=== PATIENT | female | born 1990 | race Caucasian/White ===

== ENCOUNTER 2017-04-16 12:10 | Inpatient (IN) | payer MEDICAID ==
[~2017-04-16] VITALS: Ht 165.1 cm; Wt 88.8 kg
[2017-04-16 12:30] VITALS: Ht 165.1 cm; Wt 88.8 kg
[2017-04-16 12:31] VITALS: BP 121/59; PULSE 75; RESP 18
[2017-04-16] MEDS ORDERED: OXYTOCIN 30 UNITS/LR 500 ML IV SCH ×3 (14:00→22:00)
[2017-04-16] MEDS ORDERED: MISOPROSTOL 200 MCG TAB PR PRN (14:00)
[2017-04-16] MEDS ORDERED: LACTATED RINGER'S 1,000 ML IV PRN (14:00)
[2017-04-16] MEDS ORDERED: CARBOPROST 250 MCG INJ IM PRN (14:00)
[2017-04-16] MEDS ORDERED: BUTORPHANOL 2 MG INJ IV PRN (14:00)
[2017-04-16] MEDS ORDERED: IBUPROFEN 600 MG TAB PO PRN (14:00)
[2017-04-16] MEDS ORDERED: METHYLERGONOVINE 0.2 MG INJ IM PRN (14:00)
[2017-04-16] MEDS ORDERED: OXYTOCIN 30 UNITS/LR 500 ML IV PRN (14:00)
[2017-04-16] MEDS ORDERED: LIDOCAINE 1% (MPF) 30 ML INJ INJ PRN (14:00)
[2017-04-16] MEDS: LACTATED RINGER'S 1,000 ML IV SCH ×2 (14:33→20:26)
[2017-04-16 14:51] LABS: ADD SCAN DIFF NO
[2017-04-16 14:56] LABS: BASOPHIL # 0.1 10^3/ul (0.0-0.1); BASOPHILS % 0.4 % (0.0-2.0); EOSINOPHILS # 0.1 10^3/ul (0.0-0.5); EOSINOPHILS % 0.4 % (0.0-7.0); HEMATOCRIT 34.2 % (37.0-47.0); HEMOGLOBIN 11.5 g/dl (12.0-16.0); LYMPHOCYTES # 1.6 10^3/ul (0.8-2.9); MEAN CORPUSCULAR HEMOGLOBIN 28.6 pg (29.0-33.0); MEAN CORPUSCULAR HGB CONC 33.6 g/dl (32.0-37.0); MEAN CORPUSCULAR VOLUME 85.1 fl (82.0-101.0); MEAN PLATELET VOLUME 10.2 fl (7.4-10.4); MONOCYTE # 0.7 10^3/ul (0.3-0.9); MONOCYTES % 5.7 % (0.0-11.0); NEUTROPHIL # 9.1 10^3/ul (1.6-7.5); NEUTROPHILS % 78.2 % (39.0-77.0); PLATELET COUNT 271 10^3/UL (140-415); RED BLOOD COUNT 4.02 10^6/ul (4.20-5.40); WHITE BLOOD COUNT 11.6 10^3/ul (4.8-10.8)
[2017-04-16 15:11] LABS: INR 1.09; PROTIME 14.1 Sec (12.2-14.2); PT RATIO 1.1
[2017-04-16 15:12] LABS: PARTIAL THROMBOPLASTIN TIME 29.4 Sec (25.0-35.0)
[2017-04-17] MEDS ORDERED: LACTATED RINGER'S 1,000 ML IV ONE (03:42)
[2017-04-17] MEDS ORDERED: PROCHLORPERAZINE 10 MG INJ IV PRN (04:00)
[2017-04-17] MEDS ORDERED: ONDANSETRON 4 MG INJ IV ONE (04:00)
[2017-04-17] MEDS ORDERED: morphine 2 MG INJ IV PRN ×2 (04:00)
[2017-04-17] MEDS ORDERED: KETOROLAC 30 MG INJ IV PRN (04:00)
[2017-04-17] MEDS ORDERED: ONDANSETRON 4 MG INJ IV PRN ×2 (04:00→16:00)
[2017-04-17] MEDS ORDERED: NALOXONE (0.4 MG/ML) INJ IV PRN (04:00)
[2017-04-17] MEDS ORDERED: DIPHENHYDRAMINE 50 MG INJ IV PRN (04:00)
[2017-04-17] MEDS ORDERED: CITRIC ACID/SODIUM CITRATE 15 ML CUP PO ONE (04:00)
[2017-04-17] MEDS ORDERED: FENTAnyl 2MCG/ML-ROPIV 0.2% 100 ML BAG EPI SCH (04:00)
[2017-04-17] MEDS: LACTATED RINGER'S 1,000 ML IV SCH ×2 (04:13→09:13)
--- NOTE | 2017-04-17 08:42 | PN ---
Date/Time of Note Date/Time of Note DATE: 04/17/17 TIME: 08:39 OB Subjective Subjective Subjective Patient is 4 para 1 at 39+5 weeks of gestation in active labor Status post epidural anesthesia OB Objective HEENT: WNL Heart: Rhythm Normal Lungs: Clear, Equal Abdomen: WNL Extremities: Normal Reflexes: Normal Cervical Dilatation: 3cm Effacement: 50% Station: -1 Heart Rate: 140's Accelerations: Accelerations Present Decelerations: No Decelerations Varibility: Moderate Contractions on Admission: < 5 Minutes Apart Intensity: Moderate OB Assessment/Plan Reason for admission: active labor Other plan: Artificial rupture membranes-minimal clear fluid obtained Continue with oxytocin augmentation Anticipate normal spontaneous vaginal delivery PAULA MORENO MD Apr 17, 2017 08:42
--- NOTE | 2017-04-17 14:18 | HP ---
Date/Time of Note Date/Time of Note DATE: 04/17/17 TIME: 14:13 OB - History Hx of Present Free Text/Dictation This is a 26 years old female 4 para [id number] EDC April 19, 2017 admitted to [facility] labor and delivery unit at 39 weeks and 5 days in labor pelvic examination on admission cervical dilatation 3 cm 70 % effacement vertex at -2 station patient admitted to L&D , due to far apart contraction she is required labor augmentation with Pitocin IV drip, heart tracing category 1. Chief Complaint: 39 weeks 5 days in early labor Estimated Due Date: Apr 19, 2017 : 4 Para: 1 Spontaneous : 2 Care: Good Care Ultrasounds: Normal mid trimester US Obstetrical Complications: None Medical Complications: None Past Family/Social History * Past Medical, Surgical, Family and Obstetric Histories reviewed from chart. Rubella: immune RPR/VDRL: Negative GBS Status: Negative HBsAG: Negative OB Admission Exam Vital Signs Vital Signs Vital Signs Date Time Temp Pulse Resp B/P Pulse Ox O2 Delivery O2 Flow Rate FiO2 04/16/17 12:31 98.5 75 18 121/59 Room Air Physical Exam HEENT: WNL Heart: Rhythm Normal Lungs: Clear, Equal Extremities: Normal Reflexes: Normal Cervical Dilatation: 3cm Effacement: 75% Station: -2 Membranes: Intact Heart Rate: 130's Accelerations: Accelerations Present Decelerations: No Decelerations Varibility: Moderate Contractions on Admission: 6-10 Minutes Apart Intensity: Mild Last 72 hours Lab Results CBC & BMP 04/16/17 14:20 MARSHA SUH MD Apr 17, 2017 14:18
--- NOTE | 2017-04-17 14:23 | PN ---
Triage Information Date/Time Apr 16, 2017 at 13:47 Weeks of Gestation 39 weeks 5 days : 4 Para: 1 Diabetes: none Hypertention: none Objective Vital Signs Date Time Temp Pulse Resp B/P Pulse Ox O2 Delivery O2 Flow Rate FiO2 04/16/17 12:31 98.5 75 18 121/59 Room Air Intake and Output 04/16/17 04/16/17 04/17/17 15:00 23:00 07:00 Intake Total 250 ml 625 ml 1260 ml Output Total 1400 ml 500 ml Balance 250 ml -775 ml 760 ml Results/Medications Result Diagram: 04/16/17 1420 Medications Current Medications Lactated Ringer's (Lr) 1,000 ml @ 125 mls/hr Q8H IV Last administered on 09:13; Admin Dose 125 MLS/HR; Start 04/16/17 at 13:44 Butorphanol Tartrate (Stadol) 2 mg Q2H PRN IV PAIN; Start 04/16/17 at 14:00 Lidocaine 30 ml 30 ml ONCE PRN INJ EPISIOTOMY/TEARING; Start 04/16/17 at 14:00 Oxytocin/Lactated Ringer's 500 ml @ 125 mls/hr ONCE IV ; Start 04/16/17 at 14:00 Ibuprofen 600 mg 600 mg ONCE PRN PO Mild Pain (Pain Score 1-3); Start 04/16/17 at 14:00 Lactated Ringer's 1,000 ml @ 2,000 mls/hr Q30M PRN IV PRE-EPIDURAL BOLUS; Start 04/16/17 at 14:00 Oxytocin/Lactated Ringer's 500 ml @ 0 mls/hr ONCE PRN IV For Hemorrhage Management; Start 04/16/17 at 14:00 Methylergonovine Maleate (Methergine) 0.2 mg ONCE PRN IM VAGINAL BLEEDING; Start 04/16/17 at 14:00 Carboprost Tromethamine (Hemabate) 250 mcg ONCE PRN IM VAGINAL BLEEDING; Start 04/16/17 at 14:00 Misoprostol 1000 mcg 1,000 mcg ONCE PRN LA VAGINAL BLEEDING; Start 04/16/17 at 14 :00 Oxytocin/Lactated Ringer's 500 ml @ 0 mls/hr Q0M IV Last administered on 23:51; Admin Dose 1 MLS/HR; Start 04/16/17 at 22:00 Naloxone HCl (Narcan) 0.1 mg Q2M PRN IV FOR RESP RATE 8 OR LESS; Start at 04:00; Stop 04/18/17 at 03:59 Ketorolac Tromethamine (Toradol) 30 mg Q6H PRN IV PAIN; Start 04/17/17 at 04:00 ; Stop 04/18/17 at 03:59 Morphine Sulfate (morphine) 2 mg Q3H PRN IV PAIN LEVEL 1-5; Start 04/17/17 at 04:00; Stop 04/18/17 at 03:59 Morphine Sulfate (morphine) 4 mg Q3H PRN IV PAIN LEVEL 6-10; Start 04/17/17 at 04:00; Stop 04/18/17 at 03:59 Diphenhydramine HCl (Benadryl) 25 mg Q6H PRN IV ITCHING; Start 04/17/17 at 04: 00; Stop 04/18/17 at 03:59 Ondansetron HCl (Zofran Inj) 4 mg Q6H PRN IV NAUSEA AND/OR VOMITING; Start 08/24 at 04:00; Stop 04/18/17 at 03:59 Prochlorperazine (Compazine Inj) 10 mg ONCE PRN IV NAUSEA AND/OR VOMITING; Start 04/17/17 at 04:00; Stop 04/18/17 at 03:59 MARSHA SUH MD Apr 17, 2017 14:23
--- NOTE | 2017-04-17 14:26 | LDN ---
Date/Time of Note Date/Time of Note DATE: 04/17/17 TIME: 14:23 Delivery Summary Normal spontaneous vaginal delivery of a baby from OA position shoulders delivered without any difficulty rest of the baby's body followed placenta spontaneous expulsion inspected complete patient sustained small first-degree perineal laceration repaired with 3-0 chromic catgut estimated blood loss 250 cc Weeks of Gestation 39 weeks 5 days Placenta Delivered: Spontaneously Meconium: none Episiotomy: No Laceration repair: First-degree perineal laceration repaired with 3-0 chromic catgut Anesthesia type: Epidural Estimated blood loss: 250 Sponge & Needle done & correct: Yes All needle counts correct: Yes Any foreign bodies felt in the: No Problems: Delivery Information Sex Sex: male Apgars 1 Minute: 9 5 Minute: 9 Suctioning Nose & mouth suctioned at merly: Yes Delee suction performed: No Umbilical Cord Umbilical cord with: 3 Vessels Cord presentations: nuchal cord Cord Blood was obtained: Yes MARSHA SUH MD Apr 17, 2017 14:26
[2017-04-17 15:40] VITALS: BP 97/44; PULSE 62; RESP 18
[2017-04-17] MEDS ORDERED: ACETAMINOPHEN/CODEINE #3 TAB PO PRN ×2 (16:00)
[2017-04-17] MEDS ORDERED: OXYCODONE/ASPIRIN (4.88/325) TAB PO PRN ×2 (16:00)
[2017-04-17] MEDS ORDERED: DIBUCAINE 1% 30 GM OINT PR PRN (16:00)
[2017-04-17] MEDS ORDERED: BENZOCAINE 20% 56 ML SPRAY TOP PRN (16:00)
[2017-04-17] MEDS ORDERED: WITCH HAZEL/GLYCERIN PAD PR PRN (16:00)
[2017-04-17] MEDS ORDERED: ACETAMINOPHEN 325 MG TAB PO PRN (16:00)
[2017-04-17] MEDS: LANOLIN 7 GM TUBE TOP PRN (16:58)
[2017-04-17] MEDS: OXYTOCIN 30 UNITS/LR 500 ML IV SCH ×2 (17:00→19:55)
[2017-04-17] MEDS: IBUPROFEN 600 MG TAB PO SCH (18:13)
[2017-04-17 20:00] VITALS: BP 106/49; PULSE 64; RESP 18
[2017-04-17] MEDS: SENNA/DOCUSATE NA (8.6MG/50MG) TAB PO SCH (20:24)
[2017-04-18] MEDS: IBUPROFEN 600 MG TAB PO SCH ×5 (00:07→23:31)
[2017-04-18 04:00] VITALS: BP 98/47; PULSE 66; RESP 17
[2017-04-18 07:13] LABS: ADD SCAN DIFF NO
[2017-04-18 07:16] LABS: BASOPHIL # 0.1 10^3/ul (0.0-0.1); BASOPHILS % 0.4 % (0.0-2.0); EOSINOPHILS # 0.1 10^3/ul (0.0-0.5); EOSINOPHILS % 0.9 % (0.0-7.0); HEMATOCRIT 30.3 % (37.0-47.0); HEMOGLOBIN 9.9 g/dl (12.0-16.0); LYMPHOCYTES # 2.4 10^3/ul (0.8-2.9); LYMPHOCYTES % 16.9 % (15.0-51.0); MEAN CORPUSCULAR HGB CONC 32.7 g/dl (32.0-37.0); MEAN CORPUSCULAR VOLUME 85.8 fl (82.0-101.0); MEAN PLATELET VOLUME 10.4 fl (7.4-10.4); MONOCYTES % 6.8 % (0.0-11.0); NEUTROPHIL # 10.4 10^3/ul (1.6-7.5); NEUTROPHILS % 73.9 % (39.0-77.0); PLATELET COUNT 284 10^3/UL (140-415); RED BLOOD COUNT 3.53 10^6/ul (4.20-5.40); RED CELL DISTRIBUTION WIDTH 13.9 % (11.5-14.5); WHITE BLOOD COUNT 14.1 10^3/ul (4.8-10.8)
[2017-04-18 08:20] VITALS: BP 96/50; PULSE 56; RESP 16
[2017-04-18] MEDS: SENNA/DOCUSATE NA (8.6MG/50MG) TAB PO SCH ×2 (09:45→20:53)
--- NOTE | 2017-04-18 12:16 | QN ---
Documentation Comment ppd 1 pt doing well vss exam wnl a/p ppd1 continue care AMA GUADALUPE MD Apr 18, 2017 12:16
[2017-04-18 12:23] VITALS: BP 90/45; PULSE 61; RESP 18
[2017-04-18 15:48] VITALS: BP 104/50; PULSE 64; RESP 18
[2017-04-18 20:00] VITALS: BP 109/49; PULSE 64; RESP 18
[2017-04-19 04:00] VITALS: BP 107/56; PULSE 64; RESP 18
[2017-04-19] MEDS: IBUPROFEN 600 MG TAB PO SCH ×3 (05:46→17:48)
[2017-04-19] MEDS: SENNA/DOCUSATE NA (8.6MG/50MG) TAB PO SCH (08:53)
[2017-04-19] MEDS ORDERED: MEASLES,MUMPS,RUBELLA VACCINE INJ SC* ONE (09:00)
--- NOTE | 2017-04-19 09:46 | PD.PPDC ---
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
--- NOTE | 2017-04-19 09:49 | DS ---
Date/Time of Note Date/Time of Note DATE: 04/19/17 TIME: 09:46 Discharge Summary Admission/Discharge Info Admit Date/Time Apr 16, 2017 at 13:47 Discharge Date/Time April 19, 2017 at 0 945 Final Diagnosis Day 2 post normal vaginal delivery Patient Condition: Good Procedures Normal vaginal delivery Hx of Present Illness Term admitted to the hospital in labor ,status post normal vaginal delivery being discharged home with follow-up instructions Hospital Course Satisfactory uneventful Follow-up Plan instructions given recommended to make appointment to be seen at the clinic in 2 weeks Primary Care Provider Care Physician No Primary Time spent on discharge: < 30 minutes MARSHA SUH MD Apr 19, 2017 09:49
[2017-04-19] MEDS: LANOLIN 7 GM TUBE TOP PRN (11:27)
[2017-04-19 16:23] VITALS: BP 110/45; PULSE 57; RESP 18
== END 2017-04-19 18:25 | disposition home or self-care (01) | DRG 766 ==
LOC: OBT 12:10 → L-D 12:12 → OBT 13:46 → L-D 13:47 → PP1 04-17 15:56
PROVIDERS: ADMIT Obstetrics & Gynecology; ATTEND Obstetrics & Gynecology
PROC: 10D00Z1 Extraction of Products of Conception, Low, Open Approach (ICD-10-PCS; principal; 2017-04-17)
DX: O69.81X0 Labor and delivery complicated by cord around neck, without compression, not applicable or unspecified (principal); O70.0 First degree perineal laceration during delivery; Z3A.39 39 weeks gestation of pregnancy; Z37.0 Single live birth
CPT/HCPCS: 62319; 85025; 85610; 85730; 86592; 86900; 86901; G0463; J2405; J2590; J3010; J7120

== ENCOUNTER 2019-03-09 09:11 | Emergency (ER) | payer MEDICAID ==
[~2019-03-09] VITALS: Ht 167.6 cm; Wt 82.6 kg
[2019-03-09 09:16] VITALS: BP 122/57; PULSE 74; RESP 20; Ht 167.6 cm; Wt 82.6 kg
[2019-03-09] MEDS ORDERED: AMOX500C2 PO (09:48)
[2019-03-09] MEDS ORDERED: GUAI-637 PO (09:51)
--- NOTE | 2019-03-09 10:33 | ERD ---
ER Documentation Chief Complaint Chief Complaint Complains of a sore throat x 3 -4 days HPI 28-year-old female with no reported past medical history who presents with 2-day complaint of left ear pain as well as sore throat and cough. Cough about a week ago now with complaint of mild sore throat. Had left ear pain and feeling congestion in the left ear but denies any discharge. No reported trauma. She otherwise denies fevers, chills, shortness of breath, dyspnea, voice changes, nausea, vomiting, diarrhea, abdominal pain, urinary symptoms. Able to eat and drink without issue. She is otherwise without complaint. ROS All systems reviewed and are negative except as per history of present illness. Medications Home Meds Active Scripts Guaifenesin* (Robitussin*) 100 Mg/5 Ml Syrup, 200 MG PO Q4H PRN for COUGH for 7 Days, ML Prov:JEUDINE,GETHO PA-C 03/09/19 Amoxicillin* (Amoxicillin*) 500 Mg Cap, 500 MG PO TID for 10 Days, CAP Prov:JEUDINE,GETHO PA-C 03/09/19 Allergies Allergies: Coded Allergies: No Known Allergy (Unverified , 04/16/17) PMhx/Soc Hx Alcohol Use: No Hx Substance Use: No Hx Tobacco Use: No FmHx Family History: No diabetes, No coronary disease, No other Physical Exam Vitals Vital Signs Date Temp Pulse Resp B/P (MAP) Pulse Ox O2 O2 Flow FiO2 Time Delivery Rate 03/09/19 99.8 74 20 122/57 99 09:16 (78) Physical Exam Const: No acute distress Head: Atraumatic Eyes: Normal Conjunctiva ENT: Ear with some erythema and mild swelling, no exudates, throat with mild erythema to posterior oropharynx but no swelling no exudates, no facial sinus tenderness, no neck tenderness Neck: Full range of motion. No meningismus. Resp: Clear to auscultation bilaterally Cardio: Regular rate and rhythm, no murmurs Abd: Soft, non tender, non distended. Normal bowel sounds Skin: No petechiae or rashes Back: No midline or flank tenderness Ext: No cyanosis, or edema Neur: Awake and alert Psych: Normal Mood and Affect Procedures/MDM 28-year-old female presents with cough, sore throat, and left ear pain likely secondary to acute otitis media. No overt evidence of mastoiditis or malignant otitis externa. Low suspicion for intracranial extension. Pt non-toxic appearing, tolerating PO. Will discharge home with high dose amoxicillin, the follow-up, strict return precautions. Cough is dry and not accompanied with fever within normal exam. I have low suspicion for respiratory process requiring emergent care. DISPOSITION PLAN: We discussed follow up with the patient's primary care doctor within 24 to 48 hours. Patient counseled regarding my diagnostic impression and care plan. Prior to discharge all questions answered. Pt agrees with treatment plan and understands strict return precautions. Precautionary instructions provided including instructions to return to the ER if not improving or for any worsening or changing symptoms or concerns. Disclaimer: Inadvertent spelling and grammatical errors are likely due to EHR/dictation software use and do not reflect on the overall quality of patient care. Also, please note that the electronic time recorded on this note does not necessarily reflect the actual time of the patient encounter. Departure Diagnosis: Primary Impression: Left ear pain Additional Impression: Sore throat Condition: Stable Patient Instructions: Otitis Media, Abx Tx (Adult) Referrals: [facility] YOU HAVE RECEIVED A MEDICAL SCREENING EXAM AND THE RESULTS INDICATE THAT YOU DO NOT HAVE A CONDITION THAT REQUIRES URGENT TREATMENT IN THE EMERGENCY DEPARTMENT. FURTHER EVALUATION AND TREATMENT OF YOUR CONDITION CAN WAIT UNTIL YOU ARE SEEN IN YOUR DOCTORS OFFICE WITHIN THE NEXT 1-2 DAYS. IT IS YOUR RESPONSIBILITY TO M LULY AN APPOINTMENT FOR FOLOW-UP CARE. IF YOU HAVE A PRIMARY DOCTOR --you should call your primary doctor and schedule an appointment IF YOU DO NOT HAVE A PRIMARY DOCTOR YOU CAN CALL OUR PHYSICIAN REFERRAL HOTLINE AT IF YOU CAN NOT AFFORD TO SEE A PHYSICIAN YOU CAN CHOSE FROM THE FOLLOWING [facility] [address] [facility] [address] [facility] [address] [facility] [address] [facility] [address] [facility] [facility]. [address] Additional Instructions: Call your primary care doctor TOMORROW for an appointment during the next 2-3 days.See the doctor sooner or return here if your condition worsens before your appointment time. Take your antibiotics to completion and follow-up with your PMD. CHRIS WHITTINGTON PA-C March 09, 2019 10:33
--- NOTE | 2019-03-09 11:00 | ERD ---
ER Documentation Chief Complaint Chief Complaint Complains of a sore throat x 3 -4 days HPI 28-year-old female with no reported past medical history who presents with complaint of sore throat and left ear pain for the last 3 to 4 days. She denies any discharge from the left ear but reports pain and feeling of ear congestion She has had a dry cough over the past week now with complaint of sore throat. She denies fevers, chills, shortness of breath or dyspnea, nausea, vomiting, diarrhea, urinary symptoms. She otherwise reports good health and is otherwise without complaint. ROS All systems reviewed and are negative except as per history of present illness. Medications Home Meds Active Scripts Guaifenesin* (Robitussin*) 100 Mg/5 Ml Syrup, 200 MG PO Q4H PRN for COUGH for 7 Days, ML Prov:JEUDINEBRYANHO PA-C 03/09/19 Amoxicillin* (Amoxicillin*) 500 Mg Cap, 500 MG PO TID for 10 Days, CAP Prov:JEUDINE,GETHO PA-C 03/09/19 Allergies Allergies: Coded Allergies: No Known Allergy (Unverified , 04/16/17) PMhx/Soc Hx Alcohol Use: No Hx Substance Use: No Hx Tobacco Use: No FmHx Family History: No diabetes, No coronary disease, No other Physical Exam Vitals Vital Signs Date Temp Pulse Resp B/P (MAP) Pulse Ox O2 O2 Flow FiO2 Time Delivery Rate 03/09/19 99.8 74 20 122/57 99 09:16 (78) Physical Exam Const: No acute distress Head: Atraumatic Eyes: Normal Conjunctiva ENT: Left ear with some erythema and swelling, no discharge or exudate, outer ear unremarkable, throat with some mild erythema but no swelling, exudates Neck: Full range of motion. No meningismus. Resp: Clear to auscultation bilaterally Cardio: Regular rate and rhythm, no murmurs Abd: Soft, non tender, non distended. Normal bowel sounds Skin: No petechiae or rashes Back: No midline or flank tenderness Ext: No cyanosis, or edema Neur: Awake and alert Psych: Normal Mood and Affect Procedures/MDM 28-year-old female otherwise healthy who presents with complaint of left ear pain as well as sore throat. likely secondary to acute otitis media. No overt evidence of mastoiditis or malignant otitis externa. Low suspicion for intracranial extension. Pt non-toxic appearing, tolerating PO. Will discharge home with high dose amoxicillin, follow-up as well as strict return precautions explained in detail. DISPOSITION PLAN: We discussed follow up with the patient's primary care doctor within 24 to 48 hours. Patient counseled regarding my diagnostic impression and care plan. Prior to discharge all questions answered. Pt agrees with treatment plan and understands strict return precautions. Precautionary instructions provided including instructions to return to the ER if not improving or for any worsening or changing symptoms or concerns. Disclaimer: Inadvertent spelling and grammatical errors are likely due to E HR/dictation software use and do not reflect on the overall quality of patient care. Also, please note that the electronic time recorded on this note does not necessarily reflect the actual time of the patient encounter. Departure Diagnosis: Primary Impression: Left ear pain Additional Impression: Sore throat Condition: Stable Patient Instructions: Otitis Media, Abx Tx (Adult) Referrals: [facility] YOU HAVE RECEIVED A MEDICAL SCREENING EXAM AND THE RESULTS INDICATE THAT YOU DO NOT HAVE A CONDITION THAT REQUIRES URGENT TREATMENT IN THE EMERGENCY DEPARTMENT. FURTHER EVALUATION AND TREATMENT OF YOUR CONDITION CAN WAIT UNTIL YOU ARE SEEN IN YOUR DOCTORS OFFICE WITHIN THE NEXT 1-2 DAYS. IT IS YOUR RESPONSIBILITY TO MAKE AN APPOINTMENT FOR FOLOW-UP CARE. IF YOU HAVE A PRIMARY DOCTOR --you should call your primary doctor and schedule an appointment IF YOU DO NOT HAVE A PRIMARY DOCTOR YOU CAN CALL OUR PHYSICIAN REFERRAL HOTLINE AT IF YOU CAN NOT AFFORD TO SEE A PHYSICIAN YOU CAN CHOSE FROM THE FOLLOWING [facility] [address] [facility] [place]. [facility] [address] [facility] [facility] [address] [facility] [address] [facility]. [facility] [address] [facility]. [facility]. [address] Additional Instructions: Call your primary care doctor TOMORROW for an appointment during the next 2-3 days.See the doctor sooner or return here if your condition worsens before your appointment time. Take your antibiotics to completion and follow-up with your PMD. CHRIS WHITTINGTON PA-C March 09, 2019 11:00
== END 2019-03-09 10:05 | disposition home or self-care (01) ==
LOC: FTE 09:11
DX: H92.02 Otalgia, left ear (principal)
CPT/HCPCS: 99283

== ENCOUNTER 2019-03-30 05:23 | Emergency (ER) | payer MEDICAID ==
[~2019-03-30] VITALS: Ht 165.1 cm; Wt 85.0 kg
[~2019-03-30 05:23] MED LIST: AMOX500C2 PO; GUAI-637 PO
[2019-03-30 05:29] VITALS: BP 107/51; PULSE 69; RESP 18; Ht 165.1 cm; Wt 85.0 kg
[2019-03-30] MEDS ORDERED: NAPR-985 PO (06:27)
[2019-03-30] MEDS ORDERED: NPH10OT RIGHT EAR (06:27)
--- NOTE | 2019-03-30 07:02 | ERD ---
ER Documentation Chief Complaint Chief Complaint right earache/headache x 2 weeks. just finished atb HPI 29-year-old female presenting with right ear pain. Patient states that she has been taking oral antibiotics with no alleviation. She has no fevers. She has a mild runny nose. She wears hearing aids. No sore throat. Denies medical problems. NKDA. Surgical history is nasal surgery. Social history denies ROS All systems reviewed and are negative except as per history of present illness. Medications Home Meds Active Scripts Naproxen* (Naprosyn*) 500 Mg Tablet, 500 MG PO BID PRN for PAIN AND/OR INFLAMMATION, #30 TAB Prov:CARLOS ALBERTO PABON PA-C 03/30/19 Neomycin/Polymyxin/Hydrocort* (Cortisporin* Otic) 10 Ml Susp, 4 DROP RIGHT EAR QID for 7 Days, EA Prov:CARLOS ALBERTO PABON PA-C 03/30/19 Guaifenesin* (Robitussin*) 100 Mg/5 Ml Syrup, 200 MG PO Q4H PRN for COUGH for 7 Days, ML Prov:CHRIS WHITTINGTONC 03/09/19 Amoxicillin* (Amoxicillin*) 500 Mg Cap, 500 MG PO TID for 10 Days, CAP Prov:CHRIS WHITTINGTON PA-C 03/09/19 Allergies Allergies: Coded Allergies: No Known Allergy (Unverified , 04/16/17) PMhx/Soc Medical and Surgical Hx: pt denies Medical Hx, pt denies Surgical Hx Hx Alcohol Use: No Hx Substance Use: No Hx Tobacco Use: No FmHx Family History: No diabetes, No coronary disease, No other Physical Exam Vitals Vital Signs Date Temp Pulse Resp B/P (MAP) Pulse Ox O2 O2 Flow FiO2 Time Delivery Rate 03/30/19 99.4 69 18 107/51 99 05:29 (69) Physical Exam GENERAL: The patient is well-appearing, well-nourished, in no acute distress HEENT: Atraumatic. Conjunctivae are pink. Pupils equal, round, and reactive to light. There is no scleral icterus. Tympanic membranes clear bilaterally. Oropharynx clear. Positive tragal tenderness. Erythema noted to the external ear canal on the right side. NECK: C-spine is soft and supple. There is no meningismus. There is no cervical lymphadenopathy. CHEST: Clear to auscultation bilaterally. There are no rales, wheezes or rhonchi. HEART: Regular rate and rhythm. No murmurs, clicks, rubs or gallops. Procedures/MDM DM: 29-year-old female presenting with ear pain. She has findings consistent with otitis externa. I have low suspicion for otitis media. I have low suspicion for mastoiditis. I have low suspicion for retained foreign body. Patient is discharged with supportive medications and told to follow-up with primary care within 1 to 2 days for close evaluation. Patient is told symptoms change or worsen to return immediately to the ER. All questions answered at discharge Departure Diagnosis: Primary Impression: Otitis externa Condition: Stable Patient Instructions: External Ear Infection (Adult) Referrals: [facility] YOU HAVE RECEIVED A MEDICAL SCREENING EXAM AND THE RESULTS INDICATE THAT YOU DO NOT HAVE A CONDITION THAT REQUIRES URGENT TREATMENT IN THE EMERGENCY DEPARTMENT. FURTHER EVALUATION AND TREATMENT OF YOUR CONDITION CAN WAIT UNTIL YOU ARE SEEN IN YOUR DOCTORS OFFICE WITHIN THE NEXT 1-2 DAYS. IT IS YOUR RESPONSIBILITY TO MAKE AN APPOINTMENT FOR FOLOW-UP CARE. IF YOU HAVE A PRIMARY DOCTOR --you should call your primary doctor and schedule an appointment IF YOU DO NOT HAVE A PRIMARY DOCTOR YOU CAN CALL OUR PHYSICIAN REFERRAL HOTLINE AT IF YOU CAN NOT AFFORD TO SEE A PHYSICIAN YOU CAN CHOSE FROM THE FOLLOWING [facility] [address] [facility] [address] [facility] [facility] [address] [facility] [address] [facility] [address] [facility]. [facility] [address] Additional Instructions: FOLLOW UP WITH YOUR PRIMARY CARE PHYSICIAN TOMORROW.Return to this facility if you are not improving as expected. CARLOS ALBERTO PABON PA-C March 30, 2019 07:02
== END 2019-03-30 06:35 | disposition home or self-care (01) ==
LOC: FTE 05:23
DX: H60.91 Unspecified otitis externa, right ear (principal)
CPT/HCPCS: 99283

== ENCOUNTER 2019-04-20 11:02 | Emergency (ER) | payer MEDICAID ==
[~2019-04-20] VITALS: Ht 165.1 cm; Wt 85.9 kg
[~2019-04-20 11:02] MED LIST changes: +NAPR-985 PO; +NPH10OT RIGHT EAR
[2019-04-20 11:15] VITALS: BP 131/60; PULSE 74; RESP 18; Ht 165.1 cm; Wt 85.9 kg
[2019-04-20] MEDS ORDERED: KETOROLAC 30 MG INJ IM STA (12:58)
[2019-04-20] MEDS ORDERED: ACETAMINOPHEN 500 MG TAB PO STA (12:58)
[2019-04-20] MEDS ORDERED: BUTA1CAP38 PO (13:40)
[2019-04-20] MEDS ORDERED: IBUP800T48 PO (13:40)
[2019-04-20] MEDS ORDERED: ACET500C5 PO (13:40)
--- NOTE | 2019-04-20 14:03 | ERD ---
ER Documentation Chief Complaint Chief Complaint left side head pain and face "tingling" x yesterday HPI This is a 29-year-old female patient who presents emergency room with complaint of left sided arm and head pain x1 day. Pain started in left middle finger, has progressed up arm to left face and parietal. +numbness to left face, left eye pain with tearing, no photophobia, no nausea, no dizziness. History of migraine headaches, patient takes Advil and unknown migraine medication that was prescribed to her in [facility]. Denies trauma or overuse injury. Unknown migr trevon triggers. Clear speech, no pronator drift, nad. ROS All systems reviewed and are negative except as per history of present illness. Medications Home Meds Active Scripts Ugbjzxecfs-Ymmqiurbzeqii-Pwzsioow* (Fioricet*) 50-300-40 Mg Capsule, 1 CAP PO Q4H PRN for HEADACHE for 7 Days, #14 CAP Prov:ASAD ANTONIO NP 04/20/19 Acetaminophen* (Tylophen*) 500 Mg Capsule, 2 CAP PO Q8H PRN for PAIN AND OR ELEVATED TEMP for 14 Days, #30 CAP Prov:ASAD ANTONIO NP 04/20/19 Ibuprofen* (Motrin*) 800 Mg Tab, 800 MG PO Q6 for headache for 14 Days, #30 TAB Prov:ASAD ANTONIO NP 04/20/19 Naproxen* (Naprosyn*) 500 Mg Tablet, 500 MG PO BID PRN for PAIN AND/OR INFLAMMATION, #30 TAB Prov:CARLOS ALBERTO PABON PA-C 03/30/19 Neomycin/Polymyxin/Hydrocort* (Cortisporin* Otic) 10 Ml Susp, 4 DROP RIGHT EAR QID for 7 Days, EA Prov:CARLOS ALBERTO PABON PA-C 03/30/19 Guaifenesin* (Robitussin*) 100 Mg/5 Ml Syrup, 200 MG PO Q4H PRN for COUGH for 7 Days, ML Prov:CHRIS WHITTINGTON PA-C 03/09/19 Amoxicillin* (Amoxicillin*) 500 Mg Cap, 500 MG PO TID for 10 Days, CAP Prov:CHRIS WHITTINGTONC 03/09/19 Allergies Allergies: Coded Allergies: No Known Allergy (Unverified , 04/16/17) PMhx/Soc Migraine AGUILLON, KOBUK BL hearing aids in place Medical and Surgical Hx: pt denies Medical Hx, pt denies Surgical Hx Hx Alcohol Use: No Hx Substance Use: No Hx Tobacco Use: No Smoking Status: Never smoker FmHx Family History: No diabetes, No coronary disease, No other Physical Exam Vitals Vital Signs Date Temp Pulse Resp B/P (MAP) Pulse Ox O2 O2 Flow FiO2 Time Delivery Rate 04/20/19 98.9 74 18 131/60 100 11:15 (83) Physical Exam Const: No acute distress Head: Atraumatic, left maxillary tenderness Eyes: Normal Conjunctiva, PERRL, EOMI, no ptosis ENT: Normal External Ears, Nose and Mouth. Pharynx pink, moist, no lesions, no exudate, no petechiae, equal smile. No tooth pain, +TMJ tenderness, no oral lesions, redness, swelling, decayed tooth. Neck: Full range of motion. No meningismus. Lymphadenopathy. + Left-sided upper trapezius tenderness. Resp: Clear to auscultation bilaterally Cardio: Regular rate and rhythm, no murmurs Abd: Soft, non tender, non distended. Normal bowel sounds. No hepatosplenomegaly Skin: No petechiae or rashes Back: No midline or flank tenderness, no spinal tenderness Ext: No cyanosis, or edema Neur: Awake and alert, CNII-XII intact, steady gait, negative Romberg, drawn trust advisor bilaterally, peripheral sensation intact Psych: Normal Mood and Affect Results 24 hrs Laboratory Tests Test 04/20/19 13:12 POC Beta HCG, Qualitative NEGATIVE Current Medications Medications Dose Sig/Bill Start Time Status Last (Trade) Ordered Route PRN Stop Time Admin Dose Reason Admin Ketorolac 30 mg ONCE STAT 04/20/19 DC 04/20/19 Tromethamine IM 12:58 13:21 (Toradol) 04/20/19 13:00 1,000 mg ONCE STAT 04/20/19 DC 04/20/19 Acetaminophen PO 12:58 13:20 (Tylenol 04/20/19 13:00 Tab) Procedures/MDM This is a 29-year-old female patient who presents emergency room with headache. ED COURSE: The patient was stable throughout ED course. DIAGNOSTIC IMAGING: Not indicated PROCEDURES: None. MEDICATIONS GIVEN: Toradol, acetaminophen Patient tolerated medication well with no adverse reactions. Patient reported improvement in pain. MDM: The patient is well-appearing with VSS and without neurological deficits at time of reevaluation and discharge. Clinical and diagnostic exam not suggestive of infection, intracranial process, SAH, SDH, neoplasm, meningitis, encephalitis, aneurysm, thrombus, temporal arteritis, sinusitis, CVA. The patient has been provided with instructions on self-care including use of analgesia, reducing triggers, and need for close follow-up with primary care physician within 1-2 days for reevaluation. The patient has been instructed to return immediately for worsening symptoms, change in pattern of current symptoms, or other acute problems. Departure Diagnosis: Primary Impression: Cluster headache syndrome Condition: Stable Patient Instructions: Migraines and Cluster Headaches Referrals: COMMUNITY CLINICS YOU HAVE RECEIVED A MEDICAL SCREENING EXAM AND THE RESULTS INDICATE THAT YOU DO NOT HAVE A CONDITION THAT REQUIRES URGENT TREATMENT IN THE EMERGENCY DEPARTMENT. FURTHER EVALUATION AND TREATMENT OF YOUR CONDITION CAN WAIT UNTIL YOU ARE SEEN IN YOUR DOCTORS OFFICE WITHIN THE NEXT 1-2 DAYS. IT IS YOUR RESPONSIBILITY TO MAKE AN APPOINTMENT FOR FOLOW-UP CARE. IF YOU HAVE A PRIMARY DOCTOR --you should call your primary doctor and schedule an appointment IF YOU DO NOT HAVE A PRIMARY DOCTOR YOU CAN CALL OUR PHYSICIAN REFERRAL HOTLINE AT IF YOU CAN NOT AFFORD TO SEE A PHYSICIAN YOU CAN CHOSE FROM THE FOLLOWING [facility] [address] [facility]. [facility] [address] [facility]. [facility] [address] [facility] [facility] [address] [facility]. [facility] [address] [facility]. [facility]. [address] [facility] () Usted se aguillon hecho un examen mdico de control que le indica que no est en nixon condicin que requiera tratamiento urgente en el Departamento de Emergencia. Un estudio ms profundo y el tratamiento de eugene condicin pueden esperar sin ningn riesgo hasta que usted sea atendida/o en el consultorio de eugene mdico o nixon clnica. Es responsabilidad suya arreglar nixon nasima para el seguimiento del zac. MANEJO DE CONDICIONES NO URGENTES EN EL FUTURO 1) Si usted tiene un mdico de atencin primaria: Usted debera llamar a eugene mdico de atencin primaria antes de venir al departamento de emergencia. Despus de las horas de consultorio, eugene doctor o eugene asociado/a est disponible por telfono. El mdico o enfermero de aayush en el servicio telefnico puede asesorarle por lamar medio para atender el problema, o zac contrario se puede programar nixon nasima. 2) Si usted no tiene un mdico de atencin primaria: Llame al mdico o condado institucions de referencia que aparece abajo karrie las horas de consultorio para hacer nixon nasima para que le vean. SI USTED NO PUEDE PAGAR PARA ZAMZAM UN MEDICO puede ir a: [facility] [address] [place] [address] [facility] [address] [place] [address] [facility] [address] [place] [address] [facility] [facility] [address] [id number] Additional Instructions: Thank you very much for allowing us to participate in your care. Your health and safety is our top priority at [facility]. Call your primary care doctor TOMORROW for an appointment during the next 2-4 days and bring all the information and medications prescribed. Have prescriptions filled and follow precisely the directions on the label. If the symptoms get worse and your provider is unavailable, return to the Emergency Department immediately. You have been prescribed a narcotic medication, Fioricet. This medication cannot be refilled from our emergency department and this medication is for temporary acute condition and should be replaced by use of Tylenol, ibuprofen, and adjunctive therapy such as use of heat or cooling. Fioricet may are habit forming and can lead to dependency. Do not operate heavy machinery, operate vehicle, orcare for small children while on narcotic medication. Perform stretching exercises 2-3 times per day. Follow-up with your primary care doctor for repeat evaluation and possible referral to neurology. ASAD ANTONIO NP Apr 20, 2019 13:58
== END 2019-04-20 14:17 | disposition home or self-care (01) ==
LOC: FTE 11:02
DX: G44.009 Cluster headache syndrome, unspecified, not intractable (principal)
CPT/HCPCS: 81025; 96372; J1885; Z7502; Z7610